=== PATIENT | female | born 1980 | race Caucasian/White ===

== ENCOUNTER 2020-07-22 08:41 | Outpatient (CLI) | payer SELFPAY ==
--- NOTE | 2020-07-22 08:44 | CT_ITS ---
WS: [id number] CT NECK WITH CONTRAST HISTORY: LOCALIZED SWELLING, MASS AND LUMP, NECK TECHNIQUE: Contiguous 5 mm axial images are performed through the neck with intravenous contrast. Sag ittal and coronal reformats are also submitted. All CT scans at [facility] use at least o ne of these dose optimization techniques: automated exposure control; mA and/or kV adjustment per pat ient size (includes targeted exams where dose is matched to clinical indication); or iterative recons truction. CONTRAST: CONTRAST: Omnipaque 300; 95 mL IV. DLP: 2504.19 mGycm COMPARISON: None available. Nasopharynx, oropharynx, hypopharynx and larynx are unremarkable. No soft tissue masses or abnormal e nhancement. Torus tubarius and fossa of Rosenmuller and parapharyngeal fat are normal. Small cervical chain lymph nodes. Lymph nodes are all less than 1 cm. No necrosis. Intensely enhancing mass in the superficial posterior LEFT thyroid measures 1.8 x 1.3 cm. This nodule extends over a length of 2.1 cm. No additional parotid gland nodules. Submandibular glands and thyro id are negative. Anterior bridging osteophyte at C4. 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 Mild atherosclerosis and intimal thickening involving the c arotid arteries at the bifurcations. No stenosis. Visualized paranasal sinuses and mastoid air cells are normal. Lung apices are clear. CT/CT neck w con* [id number] IMPRESSION: 1. Intensely enhancing mass measures 1.8 x 1.3 cm in the superficial LEFT paro tid gland. 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 Recommend surgical removal or biopsy. 2. No adenopathy.
[2020-07-22] MEDS: iohexol 300 mg/mL 100 mL Btl IV (09:17)
== END 2020-07-22 08:42 | disposition home or self-care (01) ==
LOC: RADWPI 08:43
PROVIDERS: PCP Physician Assistant Medical; Visit Provider Physician Assistant Medical
DX: R22.1 Localized swelling, mass and lump, neck (principal)
CPT/HCPCS: 70491; Q9967

== ENCOUNTER → 2023-08-27 11:15 | Outpatient (BNVA) | payer MEDICAID, SELFPAY | PROVIDERS: PCP Physician Assistant Medical; Referring Provider Internal Medicine; Visit Provider Psychiatry & Neurology Neurology | DX: G40.909 Epilepsy, unspecified, not intractable, without status epilepticus (principal); H53.2 Diplopia; I63.9 Cerebral infarction, unspecified | CPT/HCPCS: 36415; 81241; 83090; 85210; 85613; 85730; 86146; 86147 ==

== ENCOUNTER 2023-09-06 12:54 | Outpatient (CLI) | payer MEDICAID, SELFPAY ==
--- NOTE | 2023-09-06 13:15 | USCV_ITS ---
Cortney Lewis Age: 43 Gender: F : 1980 Exam Date: 09/06/2023 13:01 Ordering Phys: Richard Gonzales MD Technologist: Exam Location: [facility] [place] Indication: chest pain BP: 120 / 70 HR: 104 Rhythm: Sinus Technical Quality: Adequate MEASUREMENTS (Male / Female) Normal Values 2D ECHO LV Diastolic Diameter PLAX 3.0 cm 4.2 - 5.9 / 3.9 - 5.3 cm IVS Diastolic Thickness 1.2 cm 0.6 - 1.0 / 0.6 - 0.9 cm IVS Systolic Thickness 1.3 cm LVPW Diastolic Thickness 1.0 cm 0.6 - 1.0 / 0.6 - 0.9 cm LVPW Systolic Thickness 1.4 cm LVOT Diameter 2.0 cm LV Ejection Fraction 2D Teich 66.3 % LV Ejection Fraction MOD 2C 58.0 % LV Ejection Fraction 2C AL 56.8 % LA Diameter 2.6 cm RA Systolic Volume 4C AL 20.1 ml RA Systolic Volume 4C MOD 18.8 ml Aorta at Sinotubular Diameter 3.0 cm IVC Diameter 2.0 cm M-MODE LA Ao Ratio MM 1.0 AV Cusp Separation MM 1.7 cm DOPPLER AV Peak Velocity 115.0 cm/s LVOT Peak Velocity 85.0 cm/s AV Area Cont Eq vti 2.6 cm squared AV Area Cont Eq pk 2.4 cm squared MV Peak Velocity 98.0 cm/s MV Area PHT 3.9 cm squared Mitral E to A Ratio 0.9 TR Peak Velocity 173.0 cm/s TR Peak Gradient 12.0 mmHg TV Peak E Velocity 53.0 cm/s Right Atrial Pressure 3.0 mmHg Pulmonary Artery Systolic Pressu 15.0 mmHg PV Peak Velocity 85.0 cm/s FINDINGS Left Ventricle Normal left ventricular size and systolic function, EF of 65% Mild left ventricular hypertrophy. No regional wall motion abnormalities. Right Ventricle Normal right ventricular size and systolic function. Right Atrium The right atrium is normal in size. Left Atrium The left atrium is normal in size. Mitral Valve No gross morphological abnormalities noted Aortic Valve No gross abnormalities noted Tricuspid Valve No gross abnormalities noted Pulmonic Valve Pulmonic valve not well visualized. Pericardium Normal pericardium without effusion. Aorta Normal ascending aorta dimension. IVC The inferior vena cava appears normal. CONCLUSIONS Normal left ventricular size and systolic function, EF of 65% Mild left ventricular hypertrophy. No regional wall motion abnormalities. No gross valvular abnormalities Normal cardiac chamber size with normal ejection fraction No similar previous studies are available for comparison Dr Luli Alston MD FAC (Electronically Signed) Final Date: 07 September 2023 00:22 S
== END 2023-09-06 12:55 | disposition home or self-care (01) ==
LOC: RAD 12:55
PROVIDERS: PCP Physician Assistant Medical; Visit Provider Psychiatry & Neurology Neurology
DX: G40.909 Epilepsy, unspecified, not intractable, without status epilepticus (principal); I51.7 Cardiomegaly
CPT/HCPCS: 93306

== ENCOUNTER → 2023-12-06 13:40 | Outpatient (BNVA) | payer MEDICAID, SELFPAY | PROVIDERS: PCP Physician Assistant Medical; Referring Provider Psychiatry & Neurology Neurology; Visit Provider Internal Medicine | DX: R07.9 Chest pain, unspecified (principal) | CPT/HCPCS: 93005 ==

== ENCOUNTER → 2024-01-21 15:00 | Outpatient (BNVA) | payer MEDICAID, SELFPAY | PROVIDERS: PCP Physician Assistant Medical; Visit Provider Psychiatry & Neurology Neurology | DX: I10 Essential (primary) hypertension (principal); I63.9 Cerebral infarction, unspecified; I51.7 Cardiomegaly | CPT/HCPCS: 36415; 80076; 85025 ==

== ENCOUNTER 2024-01-28 12:44 | Emergency (ER) | payer MEDICAID, SELFPAY ==
[2024-01-28 12:53] VITALS: BP 131/88; PULSE 88; TEMP 36.7; O2SAT 98; BMI 21.2
--- NOTE | 2024-01-28 15:45 | ECG_ITS ---
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 Measurements Intervals [place] Rate: 86 P: 21 [place]: 123 QRS: -3 QRSD: 78 T: 29 QT: 386 QTc: 463 Interpretive Statements SINUS RHYTHM LOW QRS VOLTAGE IN PRECORDIAL LEADS [QRS DEFLECTION < 1.0 mV IN CHEST LEADS] POSSIBLE RIGHT VENTRICULAR CONDUCTION DELAY [RSR (QR) IN V1/V2] POSSIBLE ANTERIOR MYOCARDIAL INFARCTION , PROBABLY OLD [30 ms Q WAVE IN V3/V4, OR R < 0.2 mV IN V4] Compared to ECG 12/06/2023 13:46:38 Myocardial infarct finding now present Electronically Signed On 01-28-2024 16:05:08 CDT by Ananda Polo M.D. [id number]
--- NOTE | 2024-01-28 15:45 | CTR_ITS ---
PROCEDURE INFORMATION: Exam: CT Head Without Contrast Exam date and time: 01/28/2024 4:03 PM Age: 43 years old Clinical indication: Numbness / parasthesia; Patient HX: Facial numbness; Additional info: Possible stroke TECHNIQUE: Imaging protocol: Computed tomography of the head without contrast. Radiation optimization: All CT scans at this facility use at least one of these dose optimization techniques: automated exposure control; mA and/or kV adjustment per patient size (includes targeted exams where dose is matched to clinical indication); or iterative reconstruction. COMPARISON: CT neck w con* [id number] 07/22/2020 9:14 AM RADIATION DOSE METRICS: Total DLP (mGy-cm): 1039 FINDINGS: Brain: No acute intracranial hemorrhage. No edema. No mass effect. A couple of subcentimeter sharply-circumscribed hypodense foci in the left basal ganglia are suggestive of chronic lacunar infarctions. Cerebral ventricles: No ventriculomegaly. Paranasal sinuses: Visualized sinuses are unremarkable. No fluid levels. Mastoid air cells: No mastoid effusion. Bones: Unremarkable. No acute fracture. Soft tissues: Unremarkable. CT/CT head wo con* [id number] IMPRESSION: No CT evidence of acute intracranial hemorrhage, mass or acute infarction. A couple of lacunar infarctions in the left basal ganglia new since prior exam of 2020 appear sharply-circumscribed suggestive of chronic rather than acute nature.
--- NOTE | 2024-01-28 16:50 | CTR_ITS ---
PROCEDURE INFORMATION: Exam: CT Neck With Contrast Exam date and time: 01/28/2024 5:44 PM Age: 43 years old Clinical indication: Other: Swelling left side; Prior surgery; Surgery date: 6+ months; Surgery type: Tumor removed; Additional info: Swelling, pain, HX cancer TECHNIQUE: Imaging protocol: Computed tomography of the neck with contrast. Sagittal and coronal reformatted images were created and reviewed. Radiation optimization: All CT scans at this facility use at least one of these dose optimization techniques: automated exposure control; mA and/or kV adjustment per patient size (includes targeted exams where dose is matched to clinical indication); or iterative reconstruction. Contrast material: OMNI 350; Contrast volume: 100 ml; Contrast route: INTRAVENOUS (IV); COMPARISON: CT neck w con* [id number] 07/22/2020 9:14 AM RADIATION DOSE METRICS: Total DLP (mGy-cm): 274 FINDINGS: Orbital cavities: Globes and lenses, extraocular muscles, and optic nerves are intact bilaterally. No acute intraorbital abnormality. Paranasal sinuses: Small mucous retention cyst in a posterior right ethmoid sinus and the right sphenoid sinus. Other paranasal sinuses are clear. Mastoid air cells: Stable small amount of fluid in the right and left mastoid air cells. Nasal cavity: Stable mild left nasal septal deviation. Stable rodney bullosa of the right and left middle terminates. Salivary glands: Patient has had interval resection of the left parotid gland with removal of the left parotid mass. The right parotid gland is unremarkable. The right and left submandibular glands are unremarkable. Pharynx: Unremarkable. No significant tonsillar enlargement. Prevertebral and retropharyngeal spaces: Unremarkable. Larynx: The larynx is unremarkable. The epiglottis is unremarkable. Thyroid: The thyroid gland is unremarkable. Trachea: Trachea is midline and patent. Lungs: Visualized lungs are clear. Lymph nodes: No lymphadenopathy. Bones/joints: Mild degenerative changes in the visualized spine. 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 No lytic or sclerotic bony lesions. Soft tissues: No abscess. No soft tissue swelling. No radiopaque foreign body. Calcification of the nuchal ligament at C4-C5. CT/CT neck w con* [id number] IMPRESSION: 1. No acute abnormality of the cervical soft tissues. 2. Stable small amount of fluid in the right and left mastoid air cells. 3. Patient has had interval resection of the left parotid gland with removal of the left parotid mass. 4. Incidental/nonacute findings are listed in the report.
--- NOTE | 2024-01-28 16:51 | W.ED.NEUROSD ---
HPI - Neuro Symptoms/Deficit General: Chief Complaint: Neuro Symptoms/Deficit Stated Complaint: face is numb, head hurts Time Seen by Provider: 01/28/24 16:30 History of Present Illness: 43-year-old female presents with pain in her left jaw and left neck. She reports that yesterday she had a popping in her jaw and then that area, and it went numb. Patient is concerned because she has a history of prior strokes. She is currently on Plavix. Patient has history of prior lateral neck surgery due to cancer. She has got some swelling and tenderness in the left preauricular area which is where her tenderness is. Patient denies any fever, chills. She also reports she has been having little bit of a sore throat last couple days. Associated symptoms: Deny chest pain, nausea or vomiting Related Data Home Medications Medication Instructions Recorded Confirmed atorvastatin 40 mg tablet mg PO 08/27/23 01/21/24 budesonide-formoterol HFA 160 inhalation 08/27/23 01/21/24 mcg-4.5 mcg/actuation aerosol inhaler (Symbicort) albuterol sulfate 90 mcg/actuation inhalation 01/21/24 01/21/24 aerosol inhaler (Ventolin HFA) amlodipine 10 mg tablet mg PO 01/21/24 01/21/24 Previous Rx's Medication Instructions Recorded clopidogrel 75 mg tablet 75 mg PO DAILY #30 tabs 01/21/24 Allergies Allergy/AdvReac Type Severity Reaction Status Date / Time aspirin Allergy ALGY-Anaphy Verified 01/28/24 12:58 laxis codeine Allergy ALGY-Anaphy Verified 01/28/24 12:58 laxis Penicillins Allergy ALGY-Anaphy Verified 01/28/24 12:58 laxis Review of Systems Const: Denies: fever(s) or chills ENMT: Reports: throat pain and ear or mastoid pain Card: Denies: chest pain or palpitations Resp: Denies: dyspnea or productive cough GI: Denies: abdominal pain, nausea or vomiting : Denies: difficulty voiding Musc: Reports: neck pain (Please see HPI) Neuro: Reports: other (Please see HPI) PFSH ED PFSH: Social History Smoking and tobacco/nicotine status: former use of tobacco/nicotine Physical Exam Const: COMMON NORMALS: no acute distress, patient oriented x3 and alert HENMT: FACE & SINUS: Facial tenderness on exam of face and sinuses (Preauricular) on the left Neck/C-Spine: GENERAL: Yes tender (Left lateral) Resp: COMMON NORMALS: normal respiratory effort, No use of accessory muscles and clear to auscultation bilaterally AUSCULTATION: clear to auscultation bilaterally Cardio: COMMON NORMALS: regular rate and regular rhythm RATE: regular rate RHYTHM: regular rhythm GI: COMMON NORMALS: Soft to palpation and non-tender PALPATION: Yes Soft to palpation Neuro: COMMON NORMALS: patient oriented x3, moves all extremities, no focal motor deficits, no sensory deficits noted and gait normal SENSORIUM/ORIENTATION: Yes alert Psych: COMMON NORMALS: mental status grossly normal, Normal thought process present and cooperative THOUGHT PROCESS: Normal thought process present Course Vital Signs: Vital signs: Vital Signs Temperature 98.1 F 01/28/24 12:53 Pulse Rate 88 01/28/24 17:30 Blood Pressure 133/94 01/28/24 17:30 Pulse Oximetry 97 01/28/24 17:30 Oxygen Delivery Me thod Room Air 01/28/24 12:53 MDM - Neuro Symptoms/Deficit Medical Decision Making Patient is diagnostic studies were ordered reviewed and show no acute findings on labs. Patient's head CT shows no acute findings but some chronic changes. Patient was aware of some chronic changes. Patient pain is located in her left TMJ region and left neck. I did obtain a CT soft tissue neck because she felt a pop and pain immediately afterwards with her history. Patient left prior to results because she reports that she cannot stay here after dark and is unable to drive. Patient left AMA awaiting the results. She will follow-up with her primary care provider to get her results. She should return to the ER with any concerns. Lab Data 01/28/24 17:01 01/28/24 17:[address] 01/28/24 15:45 IMPRESSION: No CT evidence of acute intracranial hemorrhage, mass or acute infarction. A couple of lacunar infarctions in the left basal ganglia new since prior exam of 2020 appear sharply-circumscribed suggestive of chronic rather than acute nature. Laboratory Results WBC 9.26 10^3/uL (3.29-11.43) 01/28/24 17:01 RBC 5.29 10^6/uL (3.85-5.65) 01/28/24 17:01 Hgb 16.60 g/dL (11.27-16.99) 01/28/24 17:01 Hct 49.1 % (36-47) H 01/28/24 17:01 MCV 92.8 fl (85-98) 01/28/24 17:01 MCH 31.4 pg (27-33) 01/28/24 17:01 MCHC 33.8 g/dL (30-55) 01/28/24 17:01 RDW 12.6 % (12.1-15.1) 01/28/24 17:01 Plt Count 238 10^3/cmm (157-399) 01/28/24 17:01 MPV 10.3 fL (7.4-10.4) 01/28/24 17:01 Neut % (Auto) 60.5 % 01/28/24 17:01 Lymph % (Auto) 31.5 % 01/28/24 17:01 [place] % (Auto) 5.2 % 01/28/24 17:01 Eos % (Auto) 1.6 % 01/28/24 17:01 Baso % (Auto) 1.0 % 01/28/24 17:01 Neut # (Auto) 5.60 10^3/uL (1.8-7.7) 01/28/24 17:01 Lymph # (Auto) 2.9 10^3/uL (0.8-4.8) 01/28/24 17:01 [place] # (Auto) 0.5 10^3/uL (0.2-0.9) 01/28/24 17:01 Eos # (Auto) 0.2 10^3/uL (0.0-0.8) 01/28/24 17:01 Baso # (Auto) 0.1 10^3/uL (0.0-0.1) 01/28/24 17:01 Nucleated RBC % (auto) 0 % 01/28/24 17:01 Nucleated RBCs # 0.0 /100WBC 01/28/24 17:01 PT 13.30 SECONDS (12.1-14.9) 01/28/24 17:01 INR 0.99 (0.8-1.2) 01/28/24 17:01 APTT 28.4 SECONDS (23.9-36.7) 01/28/24 17:01 Sodium 135 mmol/L (136-145) L 01/28/24 17:01 Potassium 3.9 mmol/L (3.5-5.1) 01/28/24 17:01 Chloride 100 mmol/L (98-107) 01/28/24 17:01 Carbon Dioxide 27 mmol/L (22-29) 01/28/24 17:01 Anion Gap 11.9 (5-19) 01/28/24 17:01 BUN 7 mg/dL (6-20) 01/28/24 17:01 Creatinine 0.6 mg/dL (0.5-0.9) 01/28/24 17:01 GFR Calculation 108.1 mL/min (90-130) 01/28/24 17:01 Glucose 212 mg/dL (65-115) H 01/28/24 17:01 Calculated Osmolality 284 mOsm/kg (285-295) L 01/28/24 17:01 Calcium 8.8 mg/dL (8.5-10.5) 01/28/24 17:01 Total Bilirubin 0.5 mg/dL (0.15-1.2) 01/28/24 17:01 AST 12 U/L (0-32) 01/28/24 17:01 ALT 14 U/L (0-33) 01/28/24 17:01 Alkaline Phosphatase 84 U/L (35-105) 01/28/24 17:01 Total Protein 7.3 g/dL (6.6-8.7) 01/28/24 17:01 Albumin 4.0 g/dL (3.5-5.2) 01/28/24 17:01 Globulin 3.3 g/dL (1.3-4.6) 01/28/24 17:01 Urine Color Yellow (Yellow) 01/28/24 17:27 Urine Appearance Clear (CLEAR) 01/28/24 17:27 Urine pH 5 (5-7) 01/28/24 17:27 Ur Specific [place] 1.020 (1.005-1.030) 01/28/24 17:27 Urine Protein Neg (Negative) 01/28/24 17: Urine Glucose (UA) 1+ (Normal) H 01/28/24 17:27 Urine Ketones Negative (Negative) 01/28/24 17:27 Urine Blood Neg (Negative) 01/28/24 17:27 Urine Nitrate Negative (Negative) 01/28/24 17:27 Urine Bilirubin Neg (Negative) 01/28/24 17:27 Urine Urobilinogen Norm mg/dL (Negative) 01/28/24 17:27 Ur Leukocyte Esterase Negative (Negative) 01/28/24 17:27 Urine RBC None /hpf (0-2) 01/28/24 17:27 Urine WBC None /hpf (0-5) 01/28/24 17:27 Ur Squamous Epith Cells 10-15 /hpf (0-5) H 01/28/24 17:27 Amorphous Sediment Not Reportable 01/28/24 17:27 Urine Bacteria None /hpf (NONE) 01/28/24 17:27 Urine Mucus 3+ /hpf 01/28/24 17:27 Group A Strep Rapid Negative (Negative) 01/28/24 17:27 XR interpretation done by ED provider, pending radiology final review (Patient left AMA prior to final CT read) Discharge Plan Discharge Patient Disposition: Left Against Medical Advice Clinical Impression: Temporomandibular joint (TMJ) pain, Facial paresthesia Condition: Stable Prescriptions: No Action atorvastatin 40 mg tablet PO budesonide-formoterol [Symbicort] 160-4.5 mcg/actuation HFA aerosol inhaler inhalation amlodipine 10 mg tablet PO albuterol sulfate [Ventolin HFA] 90 mcg/actuation HFA aerosol inhaler inhalation clopidogrel 75 mg tablet 75 mg PO DAILY Qty: 30 5RF Referrals: Stef Del Rosario [Primary Care Provider] - Discharge Diet: Usual diet Discharge Activity: Resume usual activity Activity Restrictions/Additional Instructions: Please follow-up with your primary care provider for results of your CT scan and further outpatient evaluation. Coding Level of Care Code ED Front Line Supervisor for Gina Calabrese
[2024-01-28 16:57] VITALS: PULSE 81; O2SAT 99
[2024-01-28 17:00] VITALS: PULSE 87; O2SAT 98
[2024-01-28 17:11] LABS: Basophils # 0.1 10^3/uL (0.0-0.1); Eosinophils # 0.2 10^3/uL (0.0-0.8); Eosinophils % 1.6 %; Hematocrit 49.1 % (36-47); Lymphocytes # 2.9 10^3/uL (0.8-4.8); Lymphocytes % 31.5 %; Mean Corpuscular HGB Conc 33.8 g/dL (30-55); Mean Corpuscular Hemoglobin 31.4 pg (27-33); Mean Corpuscular Volume 92.8 fl (85-98); Mean Platelet Volume 10.3 fL (7.4-10.4); Monocytes # 0.5 10^3/uL (0.2-0.9); Monocytes % 5.2 %; Neutrophils % 60.5 %; Nucleated Red Blood Cells % 0 %; Platelet Count 238 10^3/cmm (157-399); Red Blood Count 5.29 10^6/uL (3.85-5.65); Red Cell Distribution Width 12.6 % (12.1-15.1); White Blood Count 9.26 10^3/uL (3.29-11.43)
[2024-01-28 17:30] VITALS: BP 133/94; PULSE 88; O2SAT 97
[2024-01-28 17:30] LABS: INR 0.99 (0.8-1.2); Partial Thromboplastin Time 28.4 SECONDS (23.9-36.7)
[2024-01-28 17:35] LABS: Anion Gap 11.9 (5-19); Aspartate Amino Transferase 12 U/L (0-32); Blood Urea Nitrogen 7 mg/dL (6-20); Calcium 8.8 mg/dL (8.5-10.5); Carbon Dioxide 27 mmol/L (22-29); Chloride 100 mmol/L (98-107); Creatinine Clr Calc Pharmacy 95.5295; Glomerular Filtration Rate 108.1 mL/min (90-130); Glucose 212 mg/dL (65-115); Osmolality Calculated 284 mOsm/kg (285-295); Potassium 3.9 mmol/L (3.5-5.1); Sodium 135 mmol/L (136-145); Total Bilirubin 0.5 mg/dL (0.15-1.2); Total Protein 7.3 g/dL (6.6-8.7)
[2024-01-28 17:44] LABS: Bilirubin Urine Neg (Negative); Blood Urine Neg (Negative); Glucose Urine UA 1+ (Normal); Ketones Urine Negative (Negative); Leukocyte Esterase Urine Negative (Negative); Nitrate Urine Negative (Negative); Protein Urine Neg (Negative); Rapid Strep A Test Negative (Negative); Urine Appearance Clear (CLEAR); Urine Color Yellow (Yellow); Urobilinogen Urine Norm (Negative); pH Urine 5 (5-7)
[2024-01-28] MEDS: iohexol 350 mg/mL 500 mL Btl (per mL) IV (17:48)
[2024-01-28 17:58] LABS: Add Urine Culture? No; Mucus Urine 3+ /hpf
[2024-01-28 17:59] LABS: Alanine Aminotransferase 14 U/L (0-33); Alkaline Phosphatase 84 U/L (35-105); Globulin 3.3 g/dL (1.3-4.6)
== END 2024-01-28 18:48 | disposition left against medical advice (07) ==
PROVIDERS: Emergency Medicine; Emergency Provider Student in an Organized Health Care Education/Training Program; PCP Physician Assistant Medical
DX: M26.609 Unspecified temporomandibular joint disorder, unspecified side (principal); R20.2 Paresthesia of skin; Z79.02 Long term (current) use of antithrombotics/antiplatelets; Z87.891 Personal history of nicotine dependence
CPT/HCPCS: 36415; 70450; 70491; 80053; 81001; 85025; 85610; 85730; 87081; 87880; 93005; 99285

== ENCOUNTER 2024-08-01 11:38 | Outpatient (CLI) | payer MEDICAID, SELFPAY ==
[2024-08-01 12:41] LABS: Basophils # 0.1 10^3/uL (0.0-0.1); Basophils % 1.1 %; Eosinophils # 0.2 10^3/uL (0.0-0.8); Eosinophils % 1.8 %; Hematocrit 48.2 % (36-47); Lymphocytes # 2.2 10^3/uL (0.8-4.8); Lymphocytes % 26.7 %; Mean Corpuscular HGB Conc 33.2 g/dL (30-55); Mean Corpuscular Hemoglobin 30.9 pg (27-33); Mean Corpuscular Volume 93.2 fl (85-98); Mean Platelet Volume 10.1 fL (7.4-10.4); Monocytes # 0.4 10^3/uL (0.2-0.9); Monocytes % 5.4 %; Neutrophils # 5.31 10^3/uL (1.8-7.7); Neutrophils % 64.6 %; Nucleated Red Blood Cells % 0 %; Platelet Count 218 10^3/cmm (157-399); Red Blood Count 5.17 10^6/uL (3.85-5.65); Red Cell Distribution Width 12.7 % (12.1-15.1); White Blood Count 8.21 10^3/uL (3.29-11.43)
[2024-08-01 13:03] LABS: Alanine Aminotransferase 12 U/L (0-33); Albumin Level 3.9 g/dL (3.5-5.2); Alkaline Phosphatase 74 U/L (35-105); Aspartate Amino Transferase 11 U/L (0-32); Total Bilirubin 0.4 mg/dL (0.15-1.2); Total Protein 6.9 g/dL (6.6-8.7)
== END 2024-08-01 11:39 | disposition home or self-care (01) ==
LOC: LAB 11:39
PROVIDERS: PCP Physician Assistant Medical; Visit Provider Psychiatry & Neurology Neurology
DX: I51.7 Cardiomegaly (principal); I63.9 Cerebral infarction, unspecified
CPT/HCPCS: 36415; 80076; 85025

== ENCOUNTER 2024-08-01 12:43 | Outpatient (CLI) | payer MEDICAID, SELFPAY ==
--- NOTE | 2024-08-01 13:00 | MR_ITS ---
WS: [id number] MRI HEAD WITH CONTRAST TECHNIQUE: Sagittal T1, T2 axial, T2 axial FLAIR, axial susceptibility weighted imaging, axial diffusion weighted images, and coronal T2 images were obtained. Pre and post-T1 axial and post T1 coronal images. ADC and FSPGR images. CLINICAL INFORMATION: I63.9 - Cerebral infarction, unspecified COMPARISON: MRI 2012 FINDINGS: No evidence of restricted diffusion to suggest acute ischemia. Ventricular system and basilar cisterns are patent. Mild patchy supratentorial white matter changes involving the periventricular and subcortical white matter nonspecific in a patient of this age but can be seen with hypertension, diabetes, and migraine headaches. Demyelinating disease is less likely. No significant parenchymal volume loss. Tiny chronic lacunar infarcts LEFT thalamus and basal ganglia new since 2012. Tiny chronic lacunar infarcts in the LEFT cerebellum also new since 2013. Mild mucosal thickening in the paranasal sinuses. RIGHT greater than LEFT mastoid effusions. Normal posterior nasopharynx. No hemosiderin on the susceptibility weighted images. Normal optic chiasm and pituitary infundibulum. Temporal lobes and hippocampal formations are normal in appearance. MR/MR head wo/w con [id number] IMPRESSION: 1. No evidence of restricted diffusion to suggest acute ischemia. 2. No hemosiderin on the susceptibility weighted images. 3. No abnormal gadolinium enhancement. 4. Few small foci of T2 hyperintensity in the periventricular white matter wit h a few tiny foci in the subcortical white matter. This is nonspecific in a pat ient of this age but can be seen with hypertension, diabetes, and migraine head aches. 5. Chronic tiny lacunar infarct in the LEFT thalamus and LEFT basal ganglia. N umerous additional tiny chronic lacunar infarcts in the LEFT cerebellum. 6. No significant parenchymal volume loss.
--- NOTE | 2024-08-01 13:45 | MR_ITS ---
WS: [id number] MRA CAROTID WITHOUT AND WITH GADOLINIUM ENHANCEMENT TECHNIQUE: Axial 2-D TOF and gadolinium bolus images obtained with axial images and axial, sagittal, and coronal 2-D reformatted images. CLINICAL INFORMATION: I63.9 - Cerebral infarction, unspecified COMPARISON: None. FINDINGS: RIGHT: RIGHT common carotid artery is patent. No significant RIGHT ICA stenosis. RIGHT ICA is patent to the skull base. LEFT: LEFT common carotid artery is patent. No significant LEFT ICA stenosis. LEFT ICA is patent to the skull base. Tortuous mid cervical LEFT ICA RIGHT dominant vertebral artery. Smaller but patent LEFT vertebral artery mainly ends in PICA. Proximal subclavian arteries are patent. Normal visualized aortic arch. MR/MR angio neck w con* [id number] IMPRESSION: 1. No significant cervical ICA stenosis. Both ICAs are patent to the skull bas e. 2. RIGHT dominant vertebral artery. Smaller but patent LEFT vertebral artery. LEFT vertebral artery mainly ends in PICA. 3. Proximal subclavian arteries are patent. Normal caliber partially visualize d aortic arch. 4. No other acute findings.
--- NOTE | 2024-08-01 14:15 | MR_ITS ---
WS: [id number] MRA HEAD TECHNIQUE: Axial 3-D TOF images obtained with axial images and axial, sagittal, and coronal 2-D reformatted images. CLINICAL INFORMATION: I63.9 - Cerebral infarction, unspecified COMPARISON: None. FINDINGS: Dominant distal RIGHT vertebral artery. LEFT vertebral artery partially ends in PICA. Proximal basilar artery is patent. Normal vascularity to the [employer] MANAGER territory bilaterally. Both ICAs are patent at the skull base. Patent anterior communicating artery. Normal vascularity to the [place] territory. Normal vascularity to the MCA territories bilaterally. No evidence of proximal flow-limiting stenosis or aneurysm. MR/MR angio head wo con [id number] IMPRESSION: 1. No evidence of high-grade proximal flow-limiting stenosis or aneurysm. 2. RIGHT dominant distal vertebral artery. Tiny distal LEFT vertebral artery p artially ends in PICA. 3. No other acute findings.
[2024-08-01] MEDS: gadobenate dimeglumine 20 mL vial IV (16:37)
== END 2024-08-01 12:44 | disposition home or self-care (01) ==
LOC: RAD 12:44
PROVIDERS: PCP Physician Assistant Medical; Visit Provider Psychiatry & Neurology Neurology
DX: I63.9 Cerebral infarction, unspecified (principal); R93.0 Abnormal findings on diagnostic imaging of skull and head, not elsewhere classified; J34.89 Other specified disorders of nose and nasal sinuses; H74.93 Unspecified disorder of middle ear and mastoid, bilateral
CPT/HCPCS: 70544; 70548; 70553